=== PATIENT | female | born 1985 | race African-American/Black ===

== ENCOUNTER 2017-05-06 10:54 | Emergency (ER) | payer MEDICAID, OTHER, SELFPAY | END 2017-05-06 13:24 | disposition home or self-care (01) | LOC: M ED 10:54 | DX: K04.7 Periapical abscess without sinus (principal); Z88.5 Allergy status to narcotic agent | CPT/HCPCS: 99283 ==

== ENCOUNTER 2017-05-28 16:20 | Emergency (ER) | payer MEDICAID | END 2017-05-28 18:12 | disposition home or self-care (01) | LOC: M ED 16:20 | DX: J06.9 Acute upper respiratory infection, unspecified (principal); Z87.891 Personal history of nicotine dependence; Z88.5 Allergy status to narcotic agent | CPT/HCPCS: 71046 ==

== ENCOUNTER 2017-05-31 07:45 | Emergency (ER) | payer MEDICAID ==
[2017-05-31 09:04] LABS: INFLUENZA A AMPLIFICATION NEGATIVE (NEGATIVE); INFLUENZA B AMPLIFICATION NEGATIVE (NEGATIVE); RSV AMPLIFICATION NEGATIVE (NEGATIVE)
== END 2017-05-31 09:50 | disposition home or self-care (01) ==
LOC: M ED 07:45
DX: J06.9 Acute upper respiratory infection, unspecified (principal); Z88.5 Allergy status to narcotic agent; Z87.891 Personal history of nicotine dependence
CPT/HCPCS: 71046

== ENCOUNTER → 2017-08-19 | Outpatient (REF) | payer OTHER ==
[2017-08-19 21:30] LABS: APPEARANCE, URINE CLEAR (CLEAR); BACTERIA, URINE AUTO NEGATIVE (NEGATIVE); BILIRUBIN, URINE AUTO NEGATIVE (NEGATIVE); BLOOD, URINE BLOOD NEGATIVE (NEGATIVE); COLOR, URINE YELLOW (YELLOW); GLUCOSE, URINE (UA) AUTO NEGATIVE (NEGATIVE); KETONE, URINE AUTO NEGATIVE (NEGATIVE); LEUKOCYTE ESTERASE, URINE AUTO TRACE (NEGATIVE); MUCUS, URINE SMALL (NEGATIVE); NITRITE, URINE AUTO NEGATIVE (NEGATIVE); PROTEIN, URINE AUTO NEGATIVE (NEGATIVE); RBC, URINE AUTO 2 /HPF (0-3); SPECIFIC GRAVITY URINE AUTO 1.024 (1.002-1.035); SQUAMOUS EPITHELIAL CELL UR AU 1 /HPF (0-6); WBC, URINE AUTO 5 /HPF (0-3)
== END ==
LOC: M LAB REF 12:22
DX: N39.0 Urinary tract infection, site not specified (principal)
CPT/HCPCS: 81001

== ENCOUNTER 2017-09-28 22:21 | Emergency (ER) | payer MEDICAID | END 2017-09-28 23:38 | disposition home or self-care (01) | LOC: M ED 22:21 | DX: F43.20 Adjustment disorder, unspecified (principal); Z88.5 Allergy status to narcotic agent | CPT/HCPCS: 99284 ==

== ENCOUNTER → 2017-11-05 | Outpatient (REF) | payer OTHER ==
[2017-11-05 15:14] LABS: CHLAMYDIA DNA AMPLIFICATION NEGATIVE (NEGATIVE); GC DNA AMPLIFICATION NEGATIVE (NEGATIVE)
== END ==
LOC: M LAB REF 13:05
DX: Z11.3 Encounter for screening for infections with a predominantly sexual mode of transmission (principal)
CPT/HCPCS: 87591

== ENCOUNTER → 2018-02-24 | Outpatient (REF) | payer OTHER ==
[~2018-02-24] MED LIST: BROMSYP7 PO; IBUP-1022 PO; MEDR4PAK PO; PENI500T PO; PERC5TAB12 PO; PROAAER10 INH; TESS100C PO; THERPAK PO; ZITHTAB PO
[2018-02-24 14:19] LABS: CHLAMYDIA DNA AMPLIFICATION NEGATIVE (NEGATIVE); GC DNA AMPLIFICATION NEGATIVE (NEGATIVE)
== END ==
LOC: M LAB REF 11:49
PROVIDERS: ATTEND Physician Assistant
DX: Z11.3 Encounter for screening for infections with a predominantly sexual mode of transmission (principal)

== ENCOUNTER → 2018-05-03 | Outpatient (CLI) | payer OTHER ==
[~2018-05-03] MED LIST changes: +BENZ200C70 PO; +FERR325T3 PO; +PRED20TA
[2018-05-03 16:33] LABS: ALBUMIN 3.4 GM/DL (3.2-5.2); ALT/SGPT 26 U/L (12-78); BILIRUBIN,TOTAL 0.4 MG/DL (0.2-1.0); BLOOD UREA NITROGEN 10 MG/DL (7-18); CALCIUM LEVEL 7.9 MG/DL (8.5-10.1); CARBON DIOXIDE LEVEL 27 MEQ/L (21-32); CHLORIDE LEVEL 106 MEQ/L (98-107); CREATININE FOR GFR 0.83 MG/DL (0.55-1.30); GLOMERULAR FILTRATION RATE > 60.0 (>60); GLUCOSE, FASTING 90 MG/DL (70-100); POTASSIUM SERUM 4.4 MEQ/L (3.5-5.1); SODIUM LEVEL 138 MEQ/L (136-145); TOTAL PROTEIN 7.1 GM/DL (6.4-8.2)
[2018-05-03 16:40] LABS: BASO % 0.3 % (0.0-1.0); EOS # 0.1 10^3/uL (0.0-0.50); HEMATOCRIT 31.4 % (36.0-47.0); HEMOGLOBIN 8.8 g/dl (12.0-15.5); LYMPH # 0.9 10^3/uL (1.5-4.5); LYMPH % 14.8 % (24.0-44.0); MEAN CORPUSCULAR HEMOGLOBIN 20.7 pg (27.0-33.0); MEAN CORPUSCULAR VOLUME 73.7 fl (80.0-96.0); MONO # 0.4 10^3/uL (0.0-0.8); MONO % 7.7 % (0.0-5.0); NEUTROPHILS # 4.4 10^3/uL (1.8-7.7); PLATELET COUNT, AUTOMATED 361 10^3/uL (150-450); RED BLOOD COUNT 4.26 10^6/uL (4.00-5.40); WHITE BLOOD COUNT 5.7 10^3/uL (4.0-10.0)
--- NOTE | 2018-05-04 02:45 | REP ---
Clinical: Cough . Comparison: 05/31/2017 . Technique: PA and lateral. Findings: The mediastinum and cardiac silhouette are normal. The lung lovell are clear and without acute consolidation, effusion, or pneumothorax. The skeletal structures are intact and normal. Impression: 1. No acute cardiopulmonary process. Electronically Signed by Duarte Brooks MD 05/04/2018 02:36 A
== END ==
LOC: M WUC 11:40
PROVIDERS: ATTEND Physician Assistant
DX: R05 Cough (principal)

== ENCOUNTER 2018-05-04 12:13 | Emergency (ER) | payer OTHER ==
[~2018-05-04] VITALS: Ht 180.3 cm; Wt 104.5 kg
[~2018-05-04 12:13] MED LIST changes: -BENZ200C70 PO; -FERR325T3 PO; -PRED20TA
[2018-05-04] MEDS ORDERED: PRED20TA (12:19)
[2018-05-04 13:08] LABS: HEMATOCRIT 30.2 % (36.0-47.0); HEMOGLOBIN 8.6 g/dl (12.0-15.5); MEAN CORPUSCULAR HEMOGLOBIN 20.8 pg (27.0-33.0); MEAN CORPUSCULAR HGB CONC 28.5 g/dl (32.0-36.5); MEAN CORPUSCULAR VOLUME 72.9 fl (80.0-96.0); PLATELET COUNT, AUTOMATED 424 10^3/uL (150-450); RED BLOOD COUNT 4.14 10^6/uL (4.00-5.40); WHITE BLOOD COUNT 4.1 10^3/uL (4.0-10.0)
[2018-05-04] MEDS ORDERED: BENZ200C70 PO (13:29)
[2018-05-04] MEDS ORDERED: FERR325T3 PO (13:29)
[2018-05-04 13:34] VITALS: BP 129/70
== END 2018-05-04 13:39 | disposition home or self-care (01) ==
LOC: M ED 12:13
DX: D50.9 Iron deficiency anemia, unspecified (principal); N92.0 Excessive and frequent menstruation with regular cycle; R05 Cough; Z88.5 Allergy status to narcotic agent

== ENCOUNTER → 2018-05-13 | Outpatient (REF) | payer OTHER ==
[~2018-05-13] MED LIST changes: +BENZ200C70 PO; +FERR325T3 PO; +PRED20TA
== END ==
LOC: M LAB REF 16:10
PROVIDERS: ATTEND Physician Assistant
DX: R30.0 Dysuria (principal)

== ENCOUNTER → 2019-08-25 | Outpatient (REF) | payer OTHER ==
[~2019-08-25] MED LIST changes: +D31000TA2 PO; +FERR1TAB8 PO
== END ==
LOC: M LAB REF 19:30
PROVIDERS: ATTEND Nurse Practitioner Family
DX: R30.0 Dysuria (principal)

== ENCOUNTER 2019-08-26 16:34 | Emergency (ER) | payer OTHER ==
[~2019-08-26] VITALS: Ht 180.3 cm; Wt 142.1 kg
[~2019-08-26 16:34] MED LIST changes: -D31000TA2 PO; -FERR1TAB8 PO
[2019-08-26] MEDS ORDERED: NS 1,000 ML IV SCH (17:15)
[2019-08-26] MEDS ORDERED: FUROSEMIDE 20MG/2ML VIAL (J1940) IV ONE (17:15)
[2019-08-26] MEDS ORDERED: FERR1TAB8 PO (17:20)
[2019-08-26] MEDS ORDERED: D31000TA2 PO ×2 (17:20→22:29)
[2019-08-26 17:37] LABS: INR 1.03; PROTHROMBIN TIME 13.2 SECONDS (11.8-14.0)
[2019-08-26 18:15] VITALS: BP 143/71
--- NOTE | 2019-08-26 18:55 | ECGEPIP ---
[facility] - ED Test Date: 2019-08-26 Pat Name: VENTURA BAUER Department: Room: - Gender: Female Functional Mental Disability Teacher: CARLITO : 1985 Requested By: ALDEN CLAKRE Order Number: [id number] Reading MD: Nadiya White Measurements Intervals [facility] Rate: 75 P: 11 LA: 137 QRS: 19 QRSD: 98 T: -9 QT: 368 QTc: 412 Interpretive Statements SINUS RHYTHM NONSPECIFIC T-WAVE ABNORMALITY 05/28/[address] T WAVE CHANGES Electronically Signed on 08-26-2019 18:54:38 EDT by Nadiya White
--- NOTE | 2019-08-27 12:33 | REP ---
AP PORTABLE CHEST: 08/26/2019. COMPARISON: 05/03/2018, 05/31/2017. CLINICAL HISTORY: Dyspnea. FINDINGS: Lung lovell are well inflated without infiltrate, effusion, atelectasis, or mass. There is no lateral pleural thickening or apical scar. I see no pneumothorax. No parenchymal nodule or mass. The heart, mediastinal and hilar contours were normal. Aorta and airway were grossly intact. Bones unremarkable. No free air under the diaphragm. IMPRESSION: 1. No acute cardiopulmonary change. Stable chest from 05/03/2018. Electronically Signed by Adam Reyes MD 08/27/2019 06:55 P
== END 2019-08-26 18:19 | disposition left against medical advice (07) ==
LOC: M ED 16:34
DX: D50.9 Iron deficiency anemia, unspecified (principal); F17.200 Nicotine dependence, unspecified, uncomplicated; Z88.6 Allergy status to analgesic agent

== ENCOUNTER 2019-08-26 21:49 | Inpatient (IN) | payer OTHER ==
[~2019-08-26] VITALS: Ht 180.3 cm; Wt 140.8 kg
[~2019-08-26 21:49] MED LIST changes: +FERR1TAB8 PO; +VITAD1000T PO
[2019-08-26] MEDS ORDERED: hydrOXYzine 25 MG TAB PO ONE (22:15)
[2019-08-26] MEDS ORDERED: NS 1,000 ML IV SCH (22:15)
[2019-08-26] MEDS ORDERED: VITAD1000T PO (22:29)
[2019-08-26] MEDS ORDERED: ACETAMINOPHEN TAB 650MG DOSE (2X325MG) PO PRN (22:30)
[2019-08-26] MEDS ORDERED: MOM 30ML SUSPENSION UDC PO PRN (22:30)
[2019-08-26] MEDS ORDERED: MAALOX 30 ML SUSP *UDC PO PRN (22:30)
[2019-08-26 22:53] VITALS: BP 166/86
[2019-08-26] MEDS ORDERED: RAMELTEON 8 MG TAB (ROZEREM) PO SCH (23:00)
[2019-08-26 23:08] VITALS: BP 141/63
[2019-08-26 23:44] VITALS: BP 152/72
--- NOTE | 2019-08-26 23:45 | HPEPDOC ---
[facility] Medical History & Physical Date of Admission Aug 26, 2019 Date of Service: Aug 26, 2019 Attending Physician: JACKIE AMAYA MD History and Physical TIME OF SERVICE: 10:55 PM CHIEF COMPLAINT: Sent by urgent care center HISTORY OF PRESENT ILLNESS: This is a 34 old female who was sent by her urgent care center because of abnormal blood work. Apparently, her hemoglobin was low. She has been feeling short of breath and weak. She was here earlier on in the evening and left AMA because she began to feel anxious, but returned shortly thereafter. She has a history of stomach ulcers diagnosed 5 years ago at [facility] in [place]. She has a history of heavy menses that last 7-10 days long, and completed her menstrual cycle on Wednesday. Stool occult was negative in the ER; Napoleon Fullergavin reached Dr. Dr. Gage who did not feel that she needed a scope. He also reached out to Dr. Wong who will see the patient tomorrow. REVIEW OF SYSTEMS: 12 point review of systems negative except as listed in HPI PAST MEDICAL/ SURGICAL HISTORY: Stomach ulcers Denies having a prior history of hypertension, CAD, CVA, or diabetes 1 SOCIAL HISTORY: She smokes She drinks wine daily but denies ever having tremors if she does not drink FAMILY HISTORY: n/a ALLERGIES: Please see below. HOME MEDICATIONS: Please see below. PHYSICAL EXAMINATION: Vital Signs Date Time Temp Pulse Resp B/P (MAP) Pulse Ox O2 Delivery O2 Flow Rate FiO2 08/26/19 21:50 98.5 106 18 162/83 (109) 100 Room Air GEN: well-nourished / well developed/ NAD HEENT: NCAT / she has conjunctival pallor CVS: RRR/NMRG LUNGS: lungs are clear to auscultation bilaterally on room air ABDOMEN: Contour (obese) / soft & not tender with palpation MSK/EXTREMITIES: range of motion intact in all 4 extremities / her nail beds are pale NEURO: CN 2-12 are grossly intact / speech is not dysarthric PSYCH: alert and oriented to person place and time/ able to understand and fo llow all commands LABORATORY DATA: WBC 4.8, hemoglobin 7.2, platelets 571 Sodium 138, potassium 4.6, chloride 106, 25, BUN 8, creatinine 0.76, glucose 92 Iron 14, TIBC 504, transferrin percent saturation 2.8, ferritin 3 TSH 1.26 ASSESSMENT: Ms. Farfan is a 34-year-old with a history of stomach ulcers will be admitted for management of acute blood loss anemia, likely due to menorrhagia. PLAN: 1. Acute blood loss, iron deficiency anemia Likely due to menorrhagia. The thrombocytosis is likely reactive due to iron deficiency. Her TSH is wnl Plan: Admit to medical floor/transfuse 2 units of PRBCs, which were previously ordered/ follow-up transvaginal ultrasound/follow-up with Dr. Wong (Gyne) / f/u serial Hg 2.Obesity Complicates care Plan: f/u A1C DVT PROPHYLAXIS: SCDS DISPOSITION: likely home after more than 2 midnight' stay Vital Signs Vital Signs Date Time Temp Pulse Resp B/P (MAP) Pulse Ox O2 Delivery O2 Flow Rate FiO2 08/26/19 23:45 98.5 90 18 152/72 (98) 97 Room Air Home Medications Scheduled Cholecalciferol (Vitamin D3) (Vitamin D3) 1,000 Unit Tablet, 2,000 UNITS PO DAILY Allergies Coded Allergies: morphine (Verified Allergy, Unknown, 08/26/19) A-FIB/CHADSVASC A-FIB History Current/History of A-Fib/PAF?: No Current PO Anticoag Therapy: No JACKIE AMAYA MD Aug 26, 2019 23:45
[2019-08-26 23:56] VITALS: BP 154/76
[2019-08-27] VITALS (13 sets, daily range): BP systolic 116–154; BP diastolic 56–79
--- NOTE | 2019-08-27 00:27 | REPVR ---
PROCEDURE INFORMATION: Exam: US Pelvis Complete, Transabdominal and US Pelvis, Transvaginal Exam date and time: 08/26/2019 11:50 PM Age: 34 years old Clinical indication: Other: Anemia TECHNIQUE: Imaging protocol: Real-time transabdominal and transvaginal pelvic ultrasound (complete) with image documentation. Transvaginal imaging was used for better evaluation of the endometrium and adnexa. COMPARISON: No relevant prior studies available. FINDINGS: Uterus/cervix: The uterus measures 11.5 cm in its cephalocaudad dimension and 6.6 x 5.7 cm in its AP and lateral dimensions transabdominal. There is a posterior fibroid measuring 3.8 x 4.2 x 4.0 cm and a smaller anterior fibroid measuring 2.9 x 2.3 x 3.0 cm. The endometrium measures 16 mm transabdominal and transvaginal. The uterus measures 9.2 cm in its cephalocaudad dimension and 5.4 x 7.4 cm in its AP and lateral dimensions transvaginal. Right adnexa: The right ovary measures 2.7 x 3.5 x 2.6 cm and demonstrates blood flow. Left adnexa: The left ovary measures 3.6 x 3.6 x 4.6 cm and demonstrates a simple cyst measuring 2.7 x 2.8 x 2.6 cm. There is left ovarian blood flow. Free fluid: There is trace fluid adjacent to the left ovary.. Bladder: The bladder is decompressed measuring 3.6 x 1.1 x 2.5 cm. IMPRESSION: 1. Uterine fibroids measuring up to 3.8 x 4.2 x 4.0 cm. 2. Upper normal endometrium measuring 16 mm. 3. Left ovarian cyst measuring 2.7 x 2.8 x 2.6 cm. 4. Otherwise negative pelvic sonogram. Electronically signed by: Derik Ta On 08/27/2019 00:26:34 AM
[2019-08-27 08:11] LABS: HEMATOCRIT 30.2 % (36.0-47.0); HEMOGLOBIN 8.3 g/dl (12.0-15.5); MEAN CORPUSCULAR HEMOGLOBIN 18.8 pg (27.0-33.0); MEAN CORPUSCULAR HGB CONC 27.5 g/dl (32.0-36.5); MEAN CORPUSCULAR VOLUME 68.3 fl (80.0-96.0); PLATELET COUNT, AUTOMATED 479 10^3/uL (150-450); RED BLOOD COUNT 4.42 10^6/uL (4.00-5.40); WHITE BLOOD COUNT 11.5 10^3/uL (4.0-10.0)
[2019-08-27 08:36] LABS: BLOOD UREA NITROGEN 9 MG/DL (7-18); CALCIUM LEVEL 8.5 MG/DL (8.5-10.1); CARBON DIOXIDE LEVEL 26 MEQ/L (21-32); CHLORIDE LEVEL 106 MEQ/L (98-107); CREATININE FOR GFR 0.79 MG/DL (0.55-1.30); GLOMERULAR FILTRATION RATE > 60.0 (>60); GLUCOSE, FASTING 143 MG/DL (70-100); POTASSIUM SERUM 4.2 MEQ/L (3.5-5.1); SODIUM LEVEL 139 MEQ/L (136-145)
[2019-08-27 08:45] LABS: HEMOGLOBIN A1c 5.9 %
--- NOTE | 2019-08-27 12:02 | CR.PDOC ---
General Date of Consultation: Aug 27, 2019 Consultation REASON FOR CONSULTATION/CHIEF COMPLAINT: Symptomatic anemia/menorrhagia/fibroid uterus. HISTORY OF PRESENT ILLNESS:, Ms. Farfan is a 34-year-old 1, para 1 who presented to the emergency department with symptomatic anemia. She reports having a history of anemia. Reports a history of iron transfusion. She has felt faint and presented to her primary care for evaluation and was noted to have hemoglobin of 7 and was referred to the emergency department for evaluation. She was admitted and transfused 2 units of packed red blood cells. Patient reports a history of heavy menses lasting 7-10 days, requiring approximate 6 pads per day with overnight pad changes. She is currently not using control. She has had her last [employer] exam [address] Talley. She reports no history of abnormal Pap smears or pelvic infections and has had no evaluation of her history of menorrhagia. ALLERGIES: Please see below. HOME MEDICATIONS: Please see below. PAST MEDICAL HISTORY: 1. Gastric ulcer. 2. Anemia. 3. Menorrhagia. PAST SURGICAL HISTORY: 1. section 2. Oral surgery FAMILY HISTORY: Noncontributory SOCIAL HISTORY: Marital status and/or living arrangements: Children: 15-year-old son Employment: Tobacco use:, 5 cigarettes per day ETOH: Casual Illicit drug use: Denies IV drug use: Denies Other relevant social factors: REVIEW OF SYSTEMS: CONSTITUTIONAL: . HEENT: . CARDIOVASCULAR: . RESPIRATORY: . GENITOURINARY: . MUSCULOSKELETAL: . GASTROINTESTINAL: . SKIN: . NEUROLOGICAL: . PSYCHIATRIC: . ENDOCRINE: . HEMATOLOGIC/LYMPHATIC: . ALLERGIC/IMMUNOLOGIC: . PHYSICAL EXAMINATION: VITAL SIGNS: Please see below. GENERAL APPEARANCE: Well-appearing]. RESPIRATORY: Clear to auscultation bilaterally. CARDIOVASCULAR:. Regular rate and rhythm. ABDOMEN: Soft, nontender. NEUROLOGICAL: Grossly intact. PSYCHIATRIC:. Appropriate. PELVIC ULTRASOUND: 1. Uterine fibroids measuring up to 3.8 x 4.2 x 4.0 cm. 2. Upper normal endometrium measuring 16 mm. ASSESSMENT/PLAN: 1. Symptomatic anemia due to menorrhagia. - Patient currently stable. Her menses stopped approximately 4-5 days ago. Pt was thoroughly counseled on management options for fibroid uterus. I discussed medical options for management. Invasive management options include uterine artery embolization, endometrial ablation or hysterectomy +/- sparing ovaries. Some complications of embolization include fever, allergic reaction to radio-opaque dye, infection, severe pain from ischemic fibroids, groin hematoma, thromboembolic events, loss of ovarian function, uterine necrosis, possible extrusion of fibroids especially if any are submucosal, and the need for surgical intervention for many of these complications. Benefits of embolization include a reduction in size of fibroids and thereby a reduction in the pressure sensation. I do no recommend attempting after embolization as the effects on are unknown and may create complications if pre gnancy did occur. Fibroids are usually benign, however, there is a risk of leiomyosarcoma (aprox 1 %). Hysterectomy is another surgical option. Some risks of hysterectomy include bleeding, infection, damage to internal organs (bladder/bowel/ureters) and . Patient is currently not a candidate for estrogen therapy secondary to her smoking history. She will consider these options and will follow up with Dr. Talley on Wednesday. Vital Signs/I&O Vital Signs Date Time Temp Pulse Resp B/P (MAP) Pulse Ox O2 Delivery O2 Flow Rate FiO2 08/27/19 07:57 98.8 74 18 126/56 99 Room Air I&O- Last 24 Hours up to 6 AM 08/27/19 06:00 Intake Total 410 ml Output Total 275 ml Balance 135 ml Laboratory Data Labs 24H Laboratory Tests 2 08/27/19 07:56: Nucleated Red Blood Cells % (auto) 0.0, Anion Gap 7L, Glomerular Filtration Rate > 60.0, Estimated Mean Plasma Glucose 123H, Hemoglobin A1c 5.9, Calcium Level 8.5 CBC/BMP Laboratory Tests 08/27/19 02:30 08/27/19 07:56 Allergies Coded Allergies: morphine (Verified Allergy, Unknown, 08/26/19) Home Medications Scheduled Cholecalciferol (Vitamin D3) (Vitamin D3) 1,000 Unit Tablet, 2,000 UNITS PO DAILY, (Reported) MADI WEBSTER MD. Aug 27, 2019 12:02
--- NOTE | 2019-08-27 17:43 | DS.PDOC ---
Discharge Summary General Date of Admission Aug 26, 2019 at 22:28 Date of Discharge August 27, 2019 Specialist/Consultants Involve: MADI WEBSTER MD. Discharge Summary PROCEDURES PERFORMED DURING STAY: [transfusion of PRBCs]. ADMITTING DIAGNOSES: 1. . DISCHARGE DIAGNOSES: 1. . COMPLICATIONS/CHIEF COMPLAINT: Symptomatic Anemia. HISTORY OF PRESENT ILLNESS: . HOSPITAL COURSE: . DISCHARGE MEDICATIONS: Please see below. ALLERGIES: Please see below. PHYSICAL EXAMINATION ON DISCHARGE: VITAL SIGNS: Please see below. GENERAL: [No distress or pain] HEENT: [Neck is supple with no adenopathy or thyromegaly. Oral mucosa is moist, she does not exhibit mucosal pallor] CARDIOVASCULAR EXAMINATION: [Regular rate and rhythm with a normal S1 and S2] RESPIRATORY EXAMINATION: [Clear to auscultation] ABDOMINAL EXAMINATION: [Soft, nontender to palpation, does have notable central obesity] EXTREMITIES: [No peripheral edema or lesions, pedal pulses are palpable] SKIN: [No lesions or rashes] NEUROLOGICAL EXAMINATION: [No focal neuromotor or sensory deficit] PSYCHIATRIC EXAMINATION: [Alert, conversant, appropriate] LABORATORY DATA: Please see below. IMAGING: [Pelvic Ultrasound IMPRESSION: 1. Uterine fibroids measuring up to 3.8 x 4.2 x 4.0 cm. 2. Upper normal endometrium measuring 16 mm. ] 3. Left ovarian cyst measuring 2.7 x 2.8 x 2.6 cm. 4. Otherwise negative pelvic sonogram. Electronically signed by: Derik Ta On 08/27/2019 00:26:34 AM PROGNOSIS: ACTIVITY: [As tolerated; patient to return to work August 28.]. DIET: [As tolerated] DISCHARGE PLAN: DISPOSITION: 01 Home, Self-Care. DISCHARGE INSTRUCTIONS: 1. . ITEMS TO FOLLOWUP ON ON OUTPATIENT: 1. . DISCHARGE CONDITION: [Stable]. TIME SPENT ON DISCHARGE: [30] minutes. Vital Signs/I&Os Vital Signs Date Time Temp Pulse Resp B/P (MAP) Pulse Ox O2 Delivery O2 Flow Rate FiO2 08/27/19 07:57 98.8 74 18 126/56 99 Room Air I&O- Last 24 Hours up to 6 AM 08/27/19 06:00 Intake Total 410 ml Output Total 275 ml Balance 135 ml Laboratory Data Labs 24H Laboratory Tests 2 08/27/19 07:56: Nucleated Red Blood Cells % (auto) 0.0, Anion Gap 7L, Glomerular Filtration Rate > 60.0, Estimated Mean Plasma Glucose 123H, Hemoglobin A1c 5.9, Calcium Level 8.5 CBC/BMP Laboratory Tests 08/27/19 02:30 08/27/19 07:56 08/27/19 12:01 Discharge Medications Scheduled Cholecalciferol (Vitamin D3) (Vitamin D3) 1,000 Unit Tablet, 2,000 UNITS PO DAILY, (Reported) Allergies Coded Allergies: morphine (Verified Allergy, Unknown, 08/26/19) DAMASO TRAYLOR MD Aug 27, 2019 17:43
== END 2019-08-27 13:41 | disposition home or self-care (01) | DRG 663 ==
LOC: M ED 21:49 → M ED INP 22:28 → ENRESERV 22:39 → M MSPAV 08-27
PROVIDERS: ADMIT Internal Medicine; ATTEND Internal Medicine
PROC: 30233N1 Transfusion of Nonautologous Red Blood Cells into Peripheral Vein, Percutaneous Approach (ICD-10-PCS; principal; 2019-08-26)
DX: D64.9 Anemia, unspecified (principal); D25.9 Leiomyoma of uterus, unspecified; N92.0 Excessive and frequent menstruation with regular cycle; N83.202 Unspecified ovarian cyst, left side; Z88.5 Allergy status to narcotic agent

== ENCOUNTER → 2019-08-26 | Outpatient (CLI) | payer OTHER ==
[2019-08-26 13:08] LABS: BASO % 0.8 % (0.0-1.0); EOS # 0.4 10^3/uL (0.0-0.5); EOS % 7.5 % (0.0-3.0); HEMATOCRIT 27.4 % (36.0-47.0); HEMOGLOBIN 7.2 g/dl (12.0-15.5); LYMPH # 1.8 10^3/uL (1.5-5.0); LYMPH % 36.5 % (24.0-44.0); MEAN CORPUSCULAR HEMOGLOBIN 17.1 pg (27.0-33.0); MEAN CORPUSCULAR HGB CONC 26.3 g/dl (32.0-36.5); MEAN CORPUSCULAR VOLUME 65.2 fl (80.0-96.0); MONO # 0.5 10^3/uL (0.0-0.8); MONO % 9.6 % (0.0-5.0); NEUTROPHILS # 2.2 10^3/uL (1.5-8.5); NEUTROPHILS % 45.4 % (36.0-66.0); PLATELET COUNT, AUTOMATED 571 10^3/uL (150-450); WHITE BLOOD COUNT 4.8 10^3/uL (4.0-10.0)
[2019-08-26 13:27] LABS: ALBUMIN 3.4 GM/DL (3.2-5.2); ALT/SGPT 32 U/L (12-78); BILIRUBIN,TOTAL 0.2 MG/DL (0.2-1.0); BLOOD UREA NITROGEN 8 MG/DL (7-18); CALCIUM LEVEL 8.5 MG/DL (8.5-10.1); CARBON DIOXIDE LEVEL 25 MEQ/L (21-32); CHLORIDE LEVEL 106 MEQ/L (98-107); CREATININE FOR GFR 0.76 MG/DL (0.55-1.30); FERRITIN 3 NG/ML (8-252); GLOMERULAR FILTRATION RATE > 60.0 (>60); GLUCOSE, FASTING 92 MG/DL (70-100); IRON (FE) 14 UG/DL (50-170); PERCENT SATURATION 2.8 % (13.2-45.0); POTASSIUM SERUM 4.6 MEQ/L (3.5-5.1); SODIUM LEVEL 138 MEQ/L (136-145); TOTAL IRON BINDING CAPACITY 504 UG/DL (250-450); TOTAL PROTEIN 7.2 GM/DL (6.4-8.2)
[2019-08-28 13:08] LABS: TOTAL 25(OH) VITAMIN D 10.9 NG/ML (30.0-100.0)
[2019-08-28 13:09] LABS: FOLATE 9.2 NG/ML; VITAMIN B12 LEVEL 288 PG/ML
== END ==
LOC: M WUC 10:57
PROVIDERS: ATTEND Nurse Practitioner Family
DX: R53.83 Other fatigue (principal)

== ENCOUNTER 2019-09-12 21:30 | Emergency (ER) | payer OTHER ==
[~2019-09-12 21:30] MED LIST changes: +ACETAMINOPHEN 325 MG/10.15 ML UDC As Ordered ONE; +AMOXICILLIN SUSP 400 MG/5 ML ORAL SYRINGE *ED As Ordered ONE
== END 2019-09-12 22:26 | disposition left against medical advice (07) ==
LOC: M ED 21:30
DX: Z53.21 Procedure and treatment not carried out due to patient leaving prior to being seen by health care provider (principal)

== ENCOUNTER → 2020-01-02 | Outpatient (REF) ==
[~2020-01-02] MED LIST changes: -ACETAMINOPHEN 325 MG/10.15 ML UDC As Ordered ONE; -AMOXICILLIN SUSP 400 MG/5 ML ORAL SYRINGE *ED As Ordered ONE; +D31000TA2 PO; -VITAD1000T PO
== END ==
LOC: M LAB 10:10
PROVIDERS: ATTEND Nurse Practitioner Adult Health
DX: Z20.828 Contact with and (suspected) exposure to other viral communicable diseases (principal)

== ENCOUNTER → 2020-03-08 | Outpatient (REF) | payer OTHER | LOC: M WUC 19:07 | PROVIDERS: ATTEND Physician Assistant | DX: S39.012A Strain of muscle, fascia and tendon of lower back, initial encounter (principal); W18.30XA Fall on same level, unspecified, initial encounter; Y92.009 Unspecified place in unspecified non-institutional (private) residence as the place of occurrence of the external cause ==

== ENCOUNTER → 2020-03-30 | Outpatient (REF) | LOC: M LABSMTC 09:05 | PROVIDERS: ATTEND Family Medicine | DX: Z20.822 Contact with and (suspected) exposure to COVID-19 (principal) ==

== ENCOUNTER → 2020-06-09 | Outpatient (REF) | payer OTHER | LOC: M LAB REF 19:11 | PROVIDERS: ATTEND Physician Assistant | DX: N39.0 Urinary tract infection, site not specified (principal) ==

== ENCOUNTER → 2020-06-09 | Outpatient (REF) | payer OTHER | LOC: M LAB REF 19:33 | PROVIDERS: ATTEND Physician Assistant | DX: J00 Acute nasopharyngitis [common cold] (principal) ==

== ENCOUNTER → 2020-06-11 | Outpatient (REF) | LOC: M LABSMTC 10:16 | PROVIDERS: ATTEND Pediatrics | DX: Z20.822 Contact with and (suspected) exposure to COVID-19 (principal) ==

== ENCOUNTER → 2020-07-01 | Outpatient (REF) | LOC: M LABSMTC 11:04 | PROVIDERS: ATTEND Pediatrics | DX: Z20.822 Contact with and (suspected) exposure to COVID-19 (principal) ==

== ENCOUNTER → 2020-11-22 | Outpatient (REF) | LOC: M LABSMTC 09:56 | PROVIDERS: ATTEND Family Medicine | DX: Z11.52 Encounter for screening for COVID-19 (principal) ==

== ENCOUNTER → 2021-02-13 | Outpatient (REF) | LOC: M EMP 13:38 | PROVIDERS: ATTEND Family Medicine | DX: Z11.52 Encounter for screening for COVID-19 (principal) ==

== ENCOUNTER → 2021-07-27 | Outpatient (REF) ==
[~2021-07-27] MED LIST changes: -D31000TA2 PO; +VITA100093 PO
== END ==
LOC: M LABSMTC 10:34
PROVIDERS: ATTEND Family Medicine
DX: Z11.52 Encounter for screening for COVID-19 (principal)

== ENCOUNTER 2021-08-15 10:18 | Emergency (ER) | payer OTHER ==
[2021-08-15] VITALS (8 sets, daily range): BP systolic 110–167; BP diastolic 58–86
[~2021-08-15] VITALS: Ht 180.3 cm; Wt 136.4 kg
[2021-08-15] MEDS ORDERED: CIPR-249 (10:38)
[2021-08-15] MEDS ORDERED: IRON1TAB2 PO (10:38)
[2021-08-15 11:51] LABS: BASO # 0.1 10^3/uL (0.0-0.2); BASO % 0.7 % (0.0-1.0); EOS # 0.3 10^3/uL (0.0-0.5); EOS % 3.3 % (0.0-3.0); HEMATOCRIT 27.3 % (36.0-47.0); HEMOGLOBIN 7.3 g/dl (12.0-15.5); LYMPH # 1.7 10^3/uL (1.5-5.0); MEAN CORPUSCULAR HEMOGLOBIN 17.5 pg (27.0-33.0); MEAN CORPUSCULAR HGB CONC 26.7 g/dl (32.0-36.5); MEAN CORPUSCULAR VOLUME 65.3 fl (80.0-96.0); MONO # 0.8 10^3/uL (0.0-0.8); MONO % 9.3 % (2.0-8.0); NEUTROPHILS # 5.4 10^3/uL (1.5-8.5); NEUTROPHILS % 65.3 % (36.0-66.0); PLATELET COUNT, AUTOMATED 625 10^3/uL (150-450); RED BLOOD COUNT 4.18 10^6/uL (4.00-5.40); WHITE BLOOD COUNT 8.2 10^3/uL (4.0-10.0)
[2021-08-15 12:00] LABS: INR 1.1; PROTHROMBIN TIME 14.6 SECONDS (12.7-14.5)
[2021-08-15 12:01] LABS: PARTIAL THROMBOPLASTIN TIME 28.5 SECONDS (25.9-37.0)
[2021-08-15 12:13] LABS: ALBUMIN 3.4 GM/DL (3.2-5.2); ALT/SGPT 16 U/L (12-78); BILIRUBIN,DIRECT 0.1 MG/DL (0.0-0.2); BILIRUBIN,TOTAL 0.3 MG/DL (0.2-1.0); BLOOD UREA NITROGEN 7 MG/DL (7-18); CALCIUM LEVEL 9.5 MG/DL (8.5-10.1); CARBON DIOXIDE LEVEL 31 MEQ/L (21-32); CHLORIDE LEVEL 106 MEQ/L (98-107); CREATININE FOR GFR 0.78 MG/DL (0.55-1.30); GLOMERULAR FILTRATION RATE > 60.0 (>60); GLUCOSE, FASTING 120 MG/DL (70-100); POTASSIUM SERUM 4.1 MEQ/L (3.5-5.1); SODIUM LEVEL 138 MEQ/L (136-145); TOTAL PROTEIN 6.8 GM/DL (6.4-8.2)
[2021-08-15] MEDS ORDERED: ALPRAZolam 0.25 MG TAB PO ONE (13:55)
== END 2021-08-15 18:19 | disposition home or self-care (01) ==
LOC: M ED 10:18
DX: D64.9 Anemia, unspecified (principal); M54.50 Low back pain, unspecified; R51.9 Headache, unspecified; K21.9 Gastro-esophageal reflux disease without esophagitis; F41.9 Anxiety disorder, unspecified; Z88.6 Allergy status to analgesic agent; Z79.899 Other long term (current) drug therapy
CPT/HCPCS: 36430; 80048; 80076; 81001; 85025; 85610; 85730; 86850; 86920; 87086; 99285; P9016

== ENCOUNTER → 2022-01-06 | Outpatient (REF) ==
[~2022-01-06] MED LIST changes: +CIPR-249; +IRON1TAB2 PO
[2022-01-06 14:02] LABS: RSV AMPLIFICATION NEGATIVE (NEGATIVE)
== END ==
LOC: M EMP 11:30
PROVIDERS: ATTEND Family Medicine
DX: Z11.52 Encounter for screening for COVID-19 (principal)

== ENCOUNTER → 2022-01-26 | Outpatient (REF) ==
[2022-01-26 13:57] LABS: RSV AMPLIFICATION NEGATIVE (NEGATIVE)
== END ==
LOC: M LABSMTC 11:27
PROVIDERS: ATTEND Family Medicine
DX: Z20.818 Contact with and (suspected) exposure to other bacterial communicable diseases (principal)

== ENCOUNTER → 2022-04-29 | Outpatient (REF) ==
[2022-04-29 14:25] LABS: RSV AMPLIFICATION NEGATIVE (NEGATIVE)
== END ==
LOC: M LABSMTC 10:26
PROVIDERS: ATTEND Family Medicine
DX: Z11.59 Encounter for screening for other viral diseases (principal)

== ENCOUNTER → 2023-05-14 | Outpatient (REF) ==
[~2023-05-14] MED LIST changes: +BROM118S38 PO; -BROMSYP7 PO
[2023-05-14 17:44] LABS: RSV AMPLIFICATION NEGATIVE (NEGATIVE)
== END ==
LOC: M EMP 11:32
PROVIDERS: ATTEND Family Medicine
DX: Z20.828 Contact with and (suspected) exposure to other viral communicable diseases (principal)

== ENCOUNTER 2023-06-04 09:57 | Emergency (ER) | payer OTHER ==
[~2023-06-04] VITALS: Ht 180.3 cm; Wt 157.7 kg
[2023-06-04 09:57] VITALS: BP 166/80; TEMP 97.7; O2SAT 99
[2023-06-04] MEDS ORDERED: OSTE1TAB2 PO (10:07)
[2023-06-04] MEDS ORDERED: NAPR-837 PO (11:59)
[2023-06-04] MEDS ORDERED: METH-1165 PO (11:59)
== END 2023-06-04 12:08 | disposition home or self-care (01) ==
LOC: M ED 09:57
DX: S46.812A Strain of other muscles, fascia and tendons at shoulder and upper arm level, left arm, initial encounter (principal); X58.XXXA Exposure to other specified factors, initial encounter; Y92.9 Unspecified place or not applicable; Y93.89 Activity, other specified; Y99.0 Civilian activity done for income or pay; K21.9 Gastro-esophageal reflux disease without esophagitis; Z88.5 Allergy status to narcotic agent

== ENCOUNTER 2023-06-27 07:40 | Emergency (ER) | payer OTHER ==
[~2023-06-27] VITALS: Ht 180.3 cm; Wt 136.4 kg
[~2023-06-27 07:40] MED LIST changes: +METH-1165 PO; +NAPR-837 PO; +OSTE1TAB2 PO
[2023-06-27 07:41] VITALS: BP 150/80; TEMP 97.5; O2SAT 100
== END 2023-06-27 08:42 | disposition home or self-care (01) ==
LOC: M ED 07:40
DX: J02.9 Acute pharyngitis, unspecified (principal); Z88.5 Allergy status to narcotic agent; Z79.899 Other long term (current) drug therapy

== ENCOUNTER → 2023-11-16 | Outpatient (REF) | LOC: M EMP 16:31 | PROVIDERS: ATTEND Family Medicine | DX: Z11.52 Encounter for screening for COVID-19 (principal) ==